=== PATIENT | female | born 1955 | race Caucasian/White ===

== ENCOUNTER 2017-09-18 06:00 | Day surgery (SDC) | payer MEDICAID ==
[~2017-09-18] VITALS: Ht 154.9 cm; Wt 53.1 kg
[2017-09-18] MEDS ORDERED: BUPIVACAINE HCL/PF 0.5% (5MG/ML) 10ML ONE ×2 (06:32→09:20)
[2017-09-18] MEDS ORDERED: LIDOCAINE HCL/PF 1% 10 MG/ML 5ML VIAL ONE ×2 (06:32→08:23)
[2017-09-18] MEDS ORDERED: TRIAMCINOLONE ACETONIDE 40MG/ML 1ML VIAL ONE (06:32)
[2017-09-18] MEDS ORDERED: LACTATED RINGERS 1,000 ML IV SCH (06:40)
[2017-09-18] MEDS ORDERED: NORMAL SALINE 0.9% 10 ML SYR ONE (06:56)
[2017-09-18] MEDS ORDERED: DEXAMETHASONE 4MG/ML 1ML VIAL ONE (06:56)
[2017-09-18] MEDS ORDERED: BACITRACIN 50,000 UNITS/VIAL ONE (06:56)
[2017-09-18] MEDS ORDERED: OMEG100016 PO (07:24)
[2017-09-18] MEDS ORDERED: CHOL20004 PO (07:24)
[2017-09-18] MEDS ORDERED: ASCO-339 PO (07:24)
[2017-09-18] MEDS ORDERED: FENTANYL CITRATE/PF 50MCG/ML 2ML VIAL ONE (08:22)
[2017-09-18] MEDS ORDERED: MIDAZOLAM HCL 2 MG/2 ML VIAL ONE (08:22)
[2017-09-18] MEDS ORDERED: GLYCOPYRROLATE 0.2 MG/ML 2ML VIAL ONE (08:22)
[2017-09-18] MEDS ORDERED: PROPOFOL 200MG/20ML VIAL IV ONE (08:22)
[2017-09-18] MEDS ORDERED: ONDANSETRON HCL 4MG/2ML VIAL ONE (08:23)
[2017-09-18] MEDS ORDERED: METOCLOPRAMIDE HCL 10MG/2ML VIAL ONE (08:23)
[2017-09-18] MEDS ORDERED: SUCCINYLCHOLINE CHLORIDE 200MG/10ML VIAL IV ONE (08:23)
[2017-09-18] MEDS ORDERED: SODIUM CHLORIDE 0.9% 1,000 ML IV ONE (08:42)
[2017-09-18] MEDS ORDERED: ONDANSETRON HCL 4MG/2ML VIAL IV PRN (08:45)
[2017-09-18] MEDS ORDERED: HYDROMORPHONE HCL/PF 2MG/ML CPJ IV PRN (08:45)
[2017-09-18] MEDS ORDERED: MEPERIDINE HCL/PF 25MG/ML CPJ IV PRN (08:45)
[2017-09-18] MEDS ORDERED: CEFAZOLIN SODIUM 1000MG/VIAL ONE (09:09)
[2017-09-18] MEDS ORDERED: BUPIVACAINE HCL/PF 0.25% (2.5MG/ML) 10ML ONE (09:24)
== END 2017-09-18 09:30 | disposition home or self-care (01) ==
LOC: OR 06:00 → UNDOADMIN 06:01 → ORIP 06:01 → OR 09:30 → UNDODISIN 11:20 → EDSTATUS 13:30
PROVIDERS: ATTEND Podiatrist Foot & Ankle Surgery
DX: M21.611 Bunion of right foot (principal); M20.11 Hallux valgus (acquired), right foot; M19.071 Primary osteoarthritis, right ankle and foot; I10 Essential (primary) hypertension; E78.5 Hyperlipidemia, unspecified; Z79.899 Other long term (current) drug therapy; Z98.890 Other specified postprocedural states
CPT/HCPCS: 28296; 73630; 88304; 88311; 97116; 97161; A4216; C1713; J0330; J0690; J1100; J2250; J2405; J2765; J3010; J3301; J3490; J7120; J2704